=== PATIENT | male | born 1980 | race Caucasian/White ===

== ENCOUNTER 2022-10-29 10:37 | Observation (INO) | payer OTHER ==
[~2022-10-29] VITALS: Ht 170.2 cm; Wt 93.0 kg
--- NOTE | ~2022-10-29 | DS ---
[facility] [address], [place] [address] Draft ADMISSION DATE: 10/29/2022 DISCHARGE DATE: REASON FOR ADMISSION: This 42-year-old white man, who is a prisoner at [facility] and was admitted with significant pancreatitis with lipase level greater than 10,000. He is noted to have multiple gallstones in the gallbladder. He is admitted for further evaluation and care. The patient has had episodic epigastric and right subcostal pain over time. His presentation in the emergency room culminated in an ultrasound, which demonstrated multiple gallstones and lipase level greater than 10,000. He is considered at admission to have gallstone pancreatitis and possible acute calculous cholecystitis. PERTINENT PHYSICAL EXAMINATION: GENERAL: Showed a cooperative white man, who is well developed and did not look to be systemically toxic. VITAL SIGNS: Temperature is 98.1, pulse 65, blood pressure 145/102, respirations 18, and pulse oximetry 98% on room air. HEENT: Mucous membranes were quite markedly dry consistent with dehydration. CHEST: Clear. ABDOMEN: Nondistended. He has tenderness in the epigastric and right subcostal area. There is no palpable mass. He had no ascites. EXTREMITIES: Show no clubbing, cyanosis, or edema. LABORATORY STUDIES: Presentation lab studies showed creatinine of 1.25. Electrolytes normal. Liver enzymes normal, globulin elevated at 4.3 and lipase 10,859. White count was 17.3, hematocrit 46.6, and platelets 345,000. Review of his serology testing showed no evidence of RSV, influenza A or B or coronavirus. IMAGING STUDIES: Showed multiple gallstones within the gallbladder. There is mild gallbladder wall thickening and positive sonographic Vizcarra sign, mild common duct dilatation of 8.8 mm. There is no evidence of liver abnormality. HOSPITAL COURSE: The patient was admitted, given fluid resuscitation and systemic IV antibiotics. His lipase with 24 hours of non-operative intervention was decreased to greater than 3400 and he did have improvement. He still had abdominal pain and tenderness. He had progressive improvement and yet still had some right subcostal tenderness and white PATIENT NAME: MIC CRUMP DISCHARGE SUMMARY DATE OF : [birth year] REPORT #: [id number] PHYSICIAN: BLAINE SOUSA MD PCP: OTHER PCP REPORT IS CONFIDENTIAL AND NOT TO BE RELEASED WITHOUT AUTHORIZATION [facility] [address], [place] [address] Draft count elevated to 14,000. He was considered stable enough for cholecystectomy to prevent further episodes of pancreatitis, as well as to assess for acute cholecystitis. On October 31, 2022, he underwent operation, this initially included laparoscopic cholecystectomy with laparoscopic common duct exploration and laparoscopic extraction of stones from the common bile duct. Flexible choledochoscopy with extraction of the stones percutaneously was accomplished. Conversion to open cholecystectomy prompting open common duct exploration was required as the multiple stones within the common bile duct could not be extracted through a transcystic approach and a formal choledochotomy was required. Given the difficulties of ERCP, papillotomy combined with his incarceration status, made conversion to open operation with operative extraction of stones, the most appropriate approach in his case. This was accomplished without problem. A T-tube cholangiogram performed, which showed no retained stones. He was maintained with an accessory drain near the common bile duct as well as a T-tube to gravity drainage. He had much improvement and progressive improvement of his pancreatitis both clinically and by measurement of lipase level. His T-tube was capped off as the accessory drain was draining no bile. He tolerated this well clinically. The T-tube cholangiogram was performed on November 03, 2022, which showed good flow through the bile duct and no sign of retained stone, but did show leakage at the T-tube and common duct site. The accessory drain at that point was draining a fair amount of bile. The T-tube was attached to gravity drainage once again to diminish the drainage from the accessory drain. It is my opinion that persistent ampullary spasm in edema and so forth of the ampulla is impeding bile flow and that drainage both with T-tube and the accessory drain will be necessary for a while going forward. He is discharged to home tolerating a regular diet, ambulating without problem, with incisional pain well controlled by oral analgesics. The T-tube is now well secured to the abdominal wall with an op-site dressing and operative suture, it is draining by gravity to the T-tube collection bag. Accessory drain has bile within it, but far less in output. Going forward, he will avoid lifting more than 20 pounds for the next 4 weeks. [facility], and we will further manage his T-tube and drain. I suspect in due course the drainage from the accessory [place] drain will become serous once again and without sign of bile leak. A trial of capping of the T-tube at the appropriate time will be undertaken leaving the accessory drain in place and so long as there is no recurrent bile drainage, consideration will be made for removal of the T-tube. I would not remove the T-tube in any case before four weeks postoperatively. PATIENT NAME: MIC CRUMP DISCHARGE SUMMARY DATE OF : [birth year] REPORT #: [id number] PHYSICIAN: BLAINE SOUSA MD PCP: OTHER PCP REPORT IS CONFIDENTIAL AND NOT TO BE RELEASED WITHOUT AUTHORIZATION [facility] [address] [place], [place] [address] Draft DISCHARGE MEDICATIONS: 1. Ibuprofen 600 mg p.o. q.6 h. p.r.n. pain. 2. Oxycodone/Tylenol, 7.5/325 one to two p.o. q.6 h. p.r.n. pain #10, no refill. 3. Tylenol 500 mg two tablets p.o. q.6 h. p.r.n. pain. He will continue his usual medications includin. Mirtazapine (Remeron) 30 mg p.o. at bedtime. 2. Fluoxetine (Prozac) 20 mg tablets two tablets p.o. daily. DISCHARGE DIAGNOSES: 1. Severe acute pancreatitis related to gallstones (gallstone pancreatitis). 2. Status post laparoscopic cholecystectomy with laparoscopic common duct exploration of stones with conversion to open cholecystectomy and extraction of stones, the common duct exploration on October 31, 2022. 3. Placement of T-tube and accessory drain. 4. Status post postoperative T-tube cholangiogram showing mild bile leak, but no impediment to flow in common bile duct ampulla. 5. Sleep disorder. MD AUDELIA Martinez/VALERIEL /[id number] cc: Chema Michele [facility] Copies: ~ PATIENT NAME: MIC CRUMP DISCHARGE SUMMARY DATE OF : [birth year] REPORT #: [id number] PHYSICIAN: BLAINE SOUSA MD PCP: OTHER PCP REPORT IS CONFIDENTIAL AND NOT TO BE RELEASED WITHOUT AUTHORIZATION
[2022-10-29] MEDS ORDERED: REMERON30 MG PO (10:51)
[2022-10-29] MEDS ORDERED: PROZAC20 MG PO (10:51)
--- NOTE | 2022-10-29 13:45 | NUR ---
RECIEVED HAND OFF REPORT FROM TAE QUIROGA.
--- NOTE | 2022-10-29 15:00 | NUR ---
PT ARRIVED TO ROOM 114, VIA STRETCHER, GUARDS X2 AT BEDSIDE. PT ABLE TO STAND AND TRANSFER TO BED INDEPENDENTLY. PT COMPLAINS OF PAIN 7/10, TENDER WITH PALPATION IN THE MIDDLE OF ABD, BOWEL TONES ACTIVE IN ALL QUADRANTS. REPORTS IS NAUSEOUS. PROVIDED ICE CHIPS. ORIENTED TO CALL LIGHT, WITHIN REACH.
--- NOTE | 2022-10-29 17:14 | NUR ---
PT REQUESTED PAIN MEDICATION. THERE ARE ORDERS FOR DILAUDID, BUT MEDICATION IS NOT SHOWING IN THE EMAR. PHARMACY CALLED, AND WILL LOOK AT IT. PT NOTIFIED THAT REGARDING THE SITUATION.
--- NOTE | 2022-10-29 19:06 | NUR ---
PT IS LAYING IN BED, VITALS ANS I/O HAVE BEEN DOCUMENTED. CALL LIGHT IS WITHIN REACH, GAURDS IN ROOM. PT HAS NO OTHER NEEDS AT THIS TIME.
--- NOTE | 2022-10-29 19:25 | NUR ---
PATIENT RESTING BACK IN BED WATCHING TELEVISION, APPEARS CALM. RATES PAIN 5/10 ON PAIN SCALE. TWO GUARDS AT BEDSIDE. BEDSIDE REPORT FROM DAYSHIFT NURSE. CALL LIGHT WITHIN REACH. NO OTHER NEEDS AT THIS TIME.
--- NOTE | 2022-10-29 21:02 | NUR ---
PATIENT REQUESTING ANTACID THAT HE HAD RECIEVED IN THE EMERGENCY ROOM. DR. SOUSA IS ON HIS WAY IN TO SEE THE PATIENT, WILL ADDRESS THEN. FULL BODY ASSESSMENT DONE, NO OTHER NEEDS AT THIS TIME. PATIENT DENIES PAIN AT THIS TIME STATES " I FEEL LIKE I HAVE AIR BUBBLES IN MY STOMACH".
--- NOTE | 2022-10-29 21:42 | NUR ---
DR. SOUSA INTO SEE PATIENT, NEW ORDERS VERIFIED. UPDATED PATIENT ON POC, NO QUESTIONS OR CONCERNS AT THIS TIME.
--- NOTE | 2022-10-29 22:49 | NUR ---
ADMINSTERED PAIN MEDICATION PER MAR, PATIENT NOW RATES PAIN 2/10 ON PAIN SCALE AND STATES " I AM FEELING MUCH MORE COMFORTABLE". LR BOLUS INUFSED. LR INFUSING AT 85 ML/HR. GAURDS AT BEDSIDE. NO OTHER NEEDS AT THIS TIME.
--- NOTE | 2022-10-29 23:39 | NUR ---
PATIENT RESTING, REQUESTING ZOFRAN AT NEXT AVAILABLE TIME. DISCUSSED POC WITH PLAN TO ADMINISTER ZOFRAN AT 0000. NO OTHER REQUESTS AT THIS TIME.
--- NOTE | 2022-10-30 02:00 | NUR ---
PATIENT RESTING SOUNDLY, COLLECTED VS, WNL. PATIENT UP TO BATRHOOM TO, DUE TO VOID. PATTY X2 ASSISTING PATIENT. WILL CALL WHEN DONE.
--- NOTE | 2022-10-30 02:30 | NUR ---
PATIENT ATTEMPTED TO VOID, AMBULATED IN ROOM. BLADDER SCAN [address] SOUSA TO ALERT. NEW ORDER FOR 2L LR BOLUS. INTO ROOM STARTED LR BOLUS AND ADMINISTERED MOM PER HEART BURN COMPLAINTS. PATIENT VERBALIZED WILL CALL WHEN HAS THE URGE TO VOID.
--- NOTE | 2022-10-30 04:15 | NUR ---
BAG 1OF 2 LITER BOLUS DONE, HUNG BAG 2 OF 2. PATIENT UP TO BATHROOM, VOIDED 600 ML OF DARK CONCENTRATED URINE. BACK TO BED, COMPLAINTS OF CRAMPING PAIN IN LOWER ABDOMEN. ADMINISTERED 0.5MG IV DILAUDID PER MAR. PATIENT NOW RESTING WITH LIGHTS DIM. CALL LIGHT WITHIN REACH. PATTY X2 AT BEDSIDE. NO OTHER NEEDS AT THIS TIME.
--- NOTE | 2022-10-30 05:30 | NUR ---
ASSESSMENT DONE. PATIENT VOIDED 600 ML OF CLEAR YELLOW URINE. LR BOLUS X2 COMPLETE. PATIENT UP AMBULATING IN HALLS WITH GAURDS. REPORTS "FEELS LIKE GAS BUBBLES" ACTIVE BOWEL TONES IN ALL QUADRANTS. PATIENT RATES PAIN 5/10 ON PAIN SCALE INTERMITTENT, ADMINISTERED ZOFRAN AND TORADOL PER MAR. NO OTHER NEEDS THIS MORNING.
--- NOTE | 2022-10-30 07:39 | NUR ---
recieved shift report. pt resting in bed, awake. guards at bedside. call light within reach.
--- NOTE | 2022-10-30 08:52 | NUR ---
MED REC COMPLETE
--- NOTE | 2022-10-30 08:57 | NUR ---
MORNING ASSESSMENT COMPLETE. PT RATES PAIN 6/10, TOLERABLE. REPORTS NAUESEA BUT WANTS TO WAIT TILL THE PEPCID TAKES EFFECT. ABD ACTIVE IN LEFT LOWER, UPPER, AND RIGHT UPPER. HYPOACTIVE IN RIGHT LOWER. TENDER WITH PALPATION. DENIES FURTHER NEEDS. CALL LIGHT WITHIN REACH.
--- NOTE | 2022-10-30 12:00 | NUR ---
pt resting in bed, awake. denies further needs. call light within reach. guards at bedside
--- NOTE | 2022-10-30 12:21 | HP ---
[facility] [address], [place] [address] Signed ADMISSION DATE: 10/29/2022 REASON FOR ADMISSION: Gallstone pancreatitis. HISTORY OF PRESENT ILLNESS: This 42-year-old white man is a prisoner at [facility] and has been incarcerated for a year and a half with at least 10 years remaining on his sentence. He has had bouts of epigastric and right subcostal pain on three separate occasions including today. His 1st was on Thanksgiving including similar symptoms that recurred on [place] and now, today New Year's Mar, with similar symptoms. This includes epigastric and right upper abdominal pain with associated nausea, but no actual vomiting thus far. He had no associated diarrhea. His previous episodes have lasted for few days. He presented to the emergency room where he was thoroughly evaluated by Dr. Bazan. This included a gallbladder ultrasound confirming multiple gallstones and lab studies showed an elevated white count of 17.3 with normal liver enzymes including a normal bilirubin of 0.4 with a markedly elevated lipase level of 10,859. He is thus considered to have gallstone pancreatitis and is admitted for further evaluation and care. PAST MEDICAL HISTORY: Notable for appendectomy. He additionally has insomnia and anxiety for which he takes mirtazapine and fluoxetine respectively. He has underlying depression. ALLERGIES: He has no known drug allergies. SOCIAL HISTORY: He is incarcerated at the [facility] as previously noted. He is originally from [place]. He offended in [facility] and is now incarcerated. FAMILY HISTORY: He denies any family history of biliary disease. REVIEW OF SYSTEMS: He denies any shortness of breath or chest pain. Does have a feeling of "bloating" as well as epigastric pain. He does not have back pain associated with this. PHYSICAL EXAMINATION: GENERAL: A well-developed, well-nourished white man who does not look to be systemically toxic. Electronically Signed By: BLAINE SOUSA MD 10/30/22 1221 PATIENT NAME: MIC CRUMP HISTORY AND PHYSICAL DATE OF : [birth year] REPORT #: [id number] PHYSICIAN: BLAINE SOUSA MD PCP: OTHER PCP REPORT IS CONFIDENTIAL AND NOT TO BE RELEASED WITHOUT AUTHORIZATION [facility] [address], [place] [address] Signed VITAL SIGNS: Temperature is 98.1, pulse 65, blood pressure 145/102, respirations 18, pulse oximetry 98%. HEENT: Mucous membranes are markedly dry. Trachea is midline. CHEST: Normal respiratory excursion without tachypnea. ABDOMEN: Scaphoid and nondistended. He does have tenderness in the epigastric and right subcostal area. EXTREMITIES: Show no clubbing, cyanosis, or edema. He does not yet have sequential compression device stockings in place. LABORATORY STUDIES: Showed normal electrolytes with a creatinine of 1.25. Electrolytes normal. Glucose is 145. Liver enzymes are normal. Globulin is elevated at 4.3. Lipase 10,859. CBC shows white count of 17.3, hematocrit 46.6, platelets 345,000. Urinalysis is normal. Serology testing showed negative influenza A, RSV, and influenza B and coronavirus. Imaging studies were reviewed clearly showing multiple stones within the gallbladder. Interpretation by radiologist (Demian Herman MD) confirmed gallstones and mild gallbladder wall thickening and positive sonographic Vizcarra sign and mild common bile duct dilation (8.8 mm). There is no evidence of liver abnormality particularly. ASSESSMENT: The patient appears to have gallstone pancreatitis. I discussed with illustrations the pathophysiology of this problem in the presence of 2 [employer] officers who tend to him. He needs additional fluids at this point, IV antibiotics, Ancef, Pepcid IV and resumption of his Remeron and mirtazapine. He may be able to proceed with operative intervention (cholecystectomy) if his symptoms are markedly improved by tomorrow. Standard therapy would be to allow medical resolution of his symptoms as much as possible proceeding to cholecystectomy prior to discharge so as to avoid further episodes. He certainly does not have to have a normal lipase nor does he have a completely normal exam prior to operation, but improvement and resuscitation of his dehydration would be a minimal prerequisite before proceeding to operative intervention. Operative intervention on occasion does require clearance of the common bile duct. All of these issues were reviewed with him. He understands and agrees with our plan thus far. Will provide additional literature on gallbladder surgery as well. Blaine Sousa MD Electronically Signed By: BLAINE SOUSA MD 10/30/22 1221 PATIENT NAME: MIC CRUMP HISTORY AND PHYSICAL DATE OF : [birth year] REPORT #: [id number] PHYSICIAN: BLAINE SOUSA MD PCP: OTHER PCP REPORT IS CONFIDENTIAL AND NOT TO BE RELEASED WITHOUT AUTHORIZATION [address] [address] Signed AUDELIA/HENNA /[id number] cc: Sari Bazan MD Copies: CRUZ BAZAN MD ~ Electronically Signed By: BLAINE SOUSA MD 10/30/22 1221 PATIENT NAME: MIC CRUMP HISTORY AND PHYSICAL DATE OF : [birth year] REPORT #: [id number] PHYSICIAN: BLAINE SOUSA MD PCP: OTHER PCP REPORT IS CONFIDENTIAL AND NOT TO BE RELEASED WITHOUT AUTHORIZATION
--- NOTE | 2022-10-30 12:41 | NUR ---
pt resting in bed. rates pain 2/10. feels the dilaudid and zofran together has helped. denies further needs at this time.
--- NOTE | 2022-10-30 14:30 | NUR ---
afternoon assessment complete. pt resting in bed. complains of pain 5/10. prn pain medication administered (per emar). pt denies further needs. no new changes since morning assessment. call light within reach.
--- NOTE | 2022-10-30 17:01 | NUR ---
PT WALKING FROM BATHROOM TO BED. GUARDS AT BEDSIDE. PT STATES PAIN IS TOLERABLE AT THIS TIME. SCDS IN PLACE. CALL LIGHT WITHIN REACH.
--- NOTE | 2022-10-30 17:51 | NUR ---
PT RESTING IN BED, COMPLAINED OF PAIN 5/10, AND NAUSEA. PRN MEDICATIONS ADMINISTERED (PER EMAR). GUARDS AT BEDSIDE. CALL LIGHT WITHIN REACH. DENIES FURTHER NEEDS AT THIS TIME.
--- NOTE | 2022-10-30 19:51 | NUR ---
REPORT RECEIVED FROM TAE MAE. pt RESTING IN BED. IVF INFUSING WNL. GUARDS PRESENT IN ROOM.
--- NOTE | 2022-10-30 21:54 | NUR ---
pt ASSESSMENT COMPLETE. RESTING IN BED, RATES PAIN 6/10 IN UPPER ABDOMEN. PRN PAIN MEDICATION ADMINISTERED. pt DENIES NAUSEA. IV SITE FLUSHED WNL. IV ANTIBIOTIC INFUSING WNL. WARM PACK PROVIDED. CALL LIGHT IN REACH. GUARDS IN ROOM.
--- NOTE | 2022-10-31 00:09 | NUR ---
CALL LIGHT ANSWERED. NEW WARM PACK PROVIDED FOR ABDOMEN, pt STATES "IT DID HELP THE CRAMPING". NO ADDITIONAL REQUESTS. GUARDS PRESENT IN ROOM.
--- NOTE | 2022-10-31 01:16 | NUR ---
CALL LIGHT ANSWERED. PRN PAIN AND NAUSEA MEDICATION ADMINISTERED REQUESTED. pt COMPLAINS OF 3/10 PAIN AT REST AND 5/10 PAIN IN UPPER ABDOMEN. WARM PACK APPLIED TO ABDOMEN. CALL LIGHT IN REACH. GUARDS IN ROOM.
--- NOTE | 2022-10-31 02:50 | NUR ---
CALL LIGHT ANSWERED, IV PUMP ALARMING, DISTAL AIR. PUMP BACKPRIMED AND FUNCTIONING WNL, IVF INFUSING ORDERED. pt HAS NO C/O PAIN. SOME TENDERNESS IN ABD WITH PALPATION. ABDOMEN DISTENDED. BOWEL TONES HYPOACTIVE. ASSESSMENT COMPLETE. URINE EMPTIED FROM URINAL. CALL LIGHT IN REACH. GUARDS IN ROOM.
--- NOTE | 2022-10-31 05:05 | NUR ---
CALL LIGHT ANSWERED. PRN PAIN MEDICATION ADMINISTERED FOR 5/10 REPORTED ABDOMINAL PAIN. URINAL EMPTIED. VSS. CALL LIGHT IN REACH. GUARDS IN ROOM.
--- NOTE | 2022-10-31 07:41 | NUR ---
REPORT RECEIVED. PT IN BED WITH TWO GAMARCELODS AT BEDSIDE. FLUIDS INFUSING PER ORDER. PT DENEIS PAIN AT THIS TIME. CALL LIGHT IN REACH.
--- NOTE | 2022-10-31 09:47 | NUR ---
CONSUELO DID HIS SURGICAL WIPE DOWN. SCDS ARE ON. GOWN AND SOCKS ON. CORRECTIONAL OFFICERS IN ROOM.
--- NOTE | 2022-10-31 10:17 | NUR ---
pt reporting pain 5/10. dilaudid admisntered. pre-procedure check list completed. assessment done. ne bag of fluids started.
--- NOTE | 2022-10-31 13:00 | NUR ---
PT REPORTING 5/10 PAIN. [facility] ADM[facility].
--- NOTE | 2022-10-31 13:20 | NUR ---
PATIENT GIVEN 0.5MG OF IV DILAUDID FOR 5/10 ABD PAIN. NO OTHER NEEDS AT THIS TIME.
--- NOTE | 2022-10-31 14:35 | NUR ---
PT UP TO BATHROOM. IN FOR ASSESSMENT AND TO START ABX./ PT REPORTING PAIN 01/06. DENIES FURTHER NEEDS. 2 GAURDS AT BEDSIDE.
--- NOTE | 2022-10-31 15:24 | NUR ---
PT OFF FLOOR TO SURGERY.
--- NOTE | 2022-10-31 19:34 | NUR ---
10/31/221933 Whitney Millard 1915 PT ARRIVED IN PACU NON RESPONSIVE TO NOXIOUS STIMULI WITH OPA IN PLACE. CHIN LIFT HELD BY RN. 1924 PT REACTIVE. OPA IN PLACE. [employer] GUARDS X2 AT BEDSIDE.
--- NOTE | 2022-10-31 20:15 | NUR ---
PT ARRIVES TO FLOOR VIA STRETCHER, REPORT RECEIVED FROM TWILL CUTTER, YOKASTA. PT RESTING IN BED WITH EYES CLOSED. REPORTS SLIGHT NAUSEA AND NEED TO VOID. PT PROVIDED WITH URINAL. PRN TO BE ADMINISTERED. SEE EMAR. PT ALSO REPORTS PAIN, INCREASING FROM 3/10 TO 7/10. PRN ADMINISTERED FOR PAIN, PT STATES RELIEF. ABD WITH LAP SITES X3, ACTICOAT, COLE TO RLQ WITH SANGUINEOUS DRAINAGE AND T TUBE TO LLQ WITH GREEN DRAINAGE. ABD DISTENDED, BT'S HYPOACTIVE, TENDER TO PALPATION. PT REQUESTS ICEWATER. EDUCATION PROVIDED ON SIPS CONSIDERING NAUSEA. PT STATES UNDERSTANDING. DENIES NEEDS AT THIS TIME. GUARDS PRESENT AT BEDSIDE. SHACKLES TO BLE, [employer] SOFT RETRAINTS PRESENT TO BUE. CALL LIGHT IN REACH.
--- NOTE | 2022-10-31 22:20 | NUR ---
CALL LIGHT ANSWERED. CPOX ALARMING, SPD ALERT. SPO2 97% ON RA. VSS. pt HAS NO COMPLAINTS OF PAIN. WATCHING TV. GUARDS IN ROOM.
--- NOTE | 2022-10-31 22:40 | NUR ---
PT ROUNDING. PT RESTING IN BED USING THE URINAL. PT STATES THAT PAIN IS DECREASED. RATES 5/10 TO ABD. DENIES PRN. PT STATES THAT NAUSEA IS WELL CONTROLLED. PT INQUIRING ABOUT DIET. JELLO PROVIDED. PT DENIES FURTHER NEEDS AT THIS TIME. CALL LIGHT IN REACH.
--- NOTE | 2022-10-31 23:30 | NUR ---
SOFTWARE APPLICATIONS ENGINEER TO ROOM FOR POST OP VS. PT RESTING WITH EYES CLOSED. DOES NOT WAKE WHILE SOFTWARE APPLICATIONS ENGINEER AT COMPUTER, WAKES EASILY TO TOUCH AND VOICE. UPON WAKING PT REPORTS PAIN 7/10 TO ABD. PRN ADMINISTERED, SEE EMAR. COLE EMPTIED 30 ML SEROSANGUINEOUS DRAINAGE. SMALL AMOUNT OF LEAKAGE NOTED FROM UNDER ACTICOAT, 2X2 AND SMALL PIECE OF TAPE APPLIED. PT REPORTS SLIGHT NAUSEA, STATES THAT IT IS TOLERABLE. ICE PACK APPLIED TO ABD FOR PAIN. DENIES FURTHER NEEDS. CALL LIGHT IN REACH.
--- NOTE | 2022-11-01 01:15 | NUR ---
PT UTILIZES CALL LIGHT, REQUESTS PRN PAIN MEDICATION. ADMINISTERED. SEE EMAR. PT REPORTS SLIGHT NASUEA. STATES THAT IT IS TOLERABLE AT THIS TIME. PT DENIES FURTHER NEEDS. CALL LIGHT IN REACH.
--- NOTE | 2022-11-01 03:53 | NUR ---
PT ROUNDING. PT RESTING IN BED AWAKE. GUARDS AT BEDSIDE X2. PT ASSESSMENT COMPLETE. PT RATES PAIN 05/08. EDCUATION PROVIDED REGARDING ORAL PAIN MEDCICATION VS IV. PT AGREES TO TRY PO. STATES THAT NAUSEA IS TOLERABLE AT THIS TIME. DENIES SOB. STATES THAT DEEP BREATHING IS PAINFUL TO ABD. EDCUATION PROVIDED ON DEEPBREATHING AND COUGHING. PT STATES UNDERSTANDING. BT'S HYPOACTIVE. ABD TENDER TO PALPATION. MILD DISTENSION NOTED. ACTICOAT DRESSING WITH SMALL AMOUNT OF RED SHADOWING PRESENT. 2X2 TISHA AND TAPE WITH RED SHADOWING PRESENT. COLE TO RLQ WITH SMALL AMOUNT OF SS DRAINAGE. T TUBE TO LUQ WITH SMALL AMOUNT OF GREEN DRAINAGE PRESENT. SHACKLES IN PLACE TO EXTREMITIES X4. CMS INTACT. PT PROVIDED WITH APPLESAUCE AND PUDDING PER REQUEST. ICE PACK TO ABD. PT DENIES FURTHER NEEDS AT THIS TIME. CALL LIGHT IN REACH.
--- NOTE | 2022-11-01 06:16 | NUR ---
PT ROUNDING. PT RESTING IN BED AWAKE, WATCHING TV. PT REPORTS PAIN, 6.7/10 TO ABD. PT ALSO REPORTS SLIGHT NAUSEA, REQUESTS PRN ZOFRAN SO HE CAN "TOLERATE HIS FOOD." PT REMINDED THAT HE HAS BEEN ABLE TO TOLERATE FOOD THROUGHOUT THE NIGHT. PT STATES UNDERSTANDING BUT WOULD STILL LIKE TOHAVE PRN ZOFRAN. ADMINISTERED. PT ICE WATER REFILLED. APPLE SAUCE PROVIDED. PT DENIES FURTHER NEEDS AT THIS TIME. CALL LIGHT IN REACH.
--- NOTE | 2022-11-01 06:29 | NUR ---
PT UP TO WALK IN [place] WITH SBA FROM GUARDS X 2. PT WITH INITIAL PAIN UPON STANDING. DENIES DIZZINESS OR LIGHTHEADEDNESS.
--- NOTE | 2022-11-01 07:00 | NUR ---
BEDSIDE REPORT FROM HARSHAD VAUGHAN RESTING COMFORTABLY WITH GUEST IN ROOM. CALL LIGHT IN REACH AND IV FUSING.
--- NOTE | 2022-11-01 08:31 | NUR ---
ASSESSMENT COMPLETE - PT USES IS WELL, DRAINS EMPTIED T TUBE, COLE, WNL. NOTIFIED KITCHEN OF [employer] PT, AND CHARGE FOR PAPER TRAY - SAFTEY PINS AND SILVERWARE REMOVED FROM ROOM BY THIS RN.
--- NOTE | 2022-11-01 10:42 | NUR ---
pt up amb in valentine with marce cardenas x2, new gown placed by this rn and 2 safety pins to hold drains - ronald aware. iv sl for walk. linen on bed changed by this rn and oral care set up in bathroom for after walk. pt is tollerating amb. well - set up chair for pt to be up after walk.
--- NOTE | 2022-11-01 14:05 | NUR ---
call to danny lopez to dc ancef and leave iv out - change other meds to po. pt up in agrees with plan.
--- NOTE | 2022-11-01 14:18 | NUR ---
CHECKED WITH [facility] ABOUT DC TORADOL - HE WAS GOING TO PHARMACY PROTOCOL CHANGE TO MOTRIN PO AND OR CHECK WITH DR. SOUSA FOR MED IN ADDITION TO PERCOCET.
--- NOTE | 2022-11-01 15:00 | NUR ---
DR ALFORD HERE - DRAINS CHECKED. DISCUSSED LOW FAT DIET, AND PAIN MEDS MOTRIN/PERCOCET. PT UP IN AFTER HIS WALK.
--- NOTE | 2022-11-01 15:22 | NUR ---
CONNECTED WITH PT IN HALLWAY HE AMBULATED WITH EOCI GUARDS. GAVE ENCOURAGEMENT, WILL FOLLOW
--- NOTE | 2022-11-01 16:25 | NUR ---
PT UP IN , 2 PO PERCOCET GIVEN FOR 9/10 ABD PAIN. PT CALL LIGHT IN REACH - 2 EOCI STAFF IN ROOM.
--- NOTE | 2022-11-01 16:27 | OR ---
[facility] [address], [place] [address] Signed DATE OF OPERATION: 10/31/2022 SURGEON: Blaine Sousa MD PREOPERATIVE DIAGNOSIS: Gallstone pancreatitis with multiple gallstones; clinically improving normal liver enzymes, current lipase 1058. POSTOPERATIVE DIAGNOSES: 1. Gallstone pancreatitis. 2. Acute calculous cholecystitis with multiple common bile duct stones. PROCEDURES: 1. Laparoscopic cholecystectomy with laparoscopic common duct exploration and laparoscopic extraction of stones from common bile duct. 2. Flexible choledochoscopy with extraction of stones (percutaneous). 3. Conversion to open cholecystectomy with open common bile duct exploration with extraction of multiple stones by flexible choledochoscopy. 4. T-tube cholangiogram with surgeon directed fluoroscopy (all of this prolonged, complicated, and difficult). ANESTHESIA: General endotracheal, Gail Meño, MANAGER PERSONNEL SELECTION and local 20 mL of 0.25% Marcaine with epinephrine. INDICATION: This 42-year-old white man is a prisoner at [facility] and presented on October 29, 2022 with upper abdominal pain and findings on gallbladder ultrasound showing multiple gallstones within the gallbladder. He was noted to have a lipase level greater than 10,000. He was admitted, given intravenous fluids, parenteral antibiotics and so forth. He has had progressive improvement clinically speaking, though still has some pain in the upper abdomen with mild tenderness. His lipase has decreased to 1058. He is clinically improved enough that cholecystectomy is recommended, so as to avoid recurrent pancreatitis problems. It is uncertain if he has concurrent acute cholecystitis as he does still have some residual pain. Notably, his white count was elevated at the time of admission and has increased to 14,000 again today. He is admitted at this time to undergo a laparoscopic cholecystectomy, possible open procedure, possible common duct exploration, either laparoscopic or open and other Electronically Signed By: BLAINE SOUSA MD 11/01/22 1627 PATIENT NAME: MIC CRUMP OPERATIVE REPORT DATE OF : 82 REPORT #: [id number] PHYSICIAN: BLAINE SOUSA MD PCP: OTHER PCP REPORT IS CONFIDENTIAL AND NOT TO BE RELEASED WITHOUT AUTHORIZATION [facility] [address], [place] [address] Signed indicated procedures. Understanding the risks of bleeding, infection, bile duct injury, need for open procedure and other unforeseen complications, he wished to proceed. FINDINGS: The gallbladder was quite markedly inflamed independently of pancreatitis. There was no evidence of pancreatic saponification. Meticulous care was made to provide for laparoscopic cholecystectomy. Initial cholangiogram showed multiple gallstones within the biliary tree. Despite the markedly inflamed gallbladder and cystic duct a percutaneous transcystic duct exploration of the common duct was undertaken with flexible ureteroscope. This allowed for extraction of several gallstones and there are other multiple gallstones still remaining. The stones appeared to be too large to extract through the cystic duct itself. Quite notably contrast egressed into the duodenum on cholangiogram, however, passage of the flexible wire through the ampulla into the duodenum was never forthcoming and on one occasion, the wire passed retrograde in the pancreatic duct, which was mildly dilated as well. This is a testimony to the inflammatory nature of his pancreatitis and ampullary narrowing. He ultimately required conversion to open operation, which allowed for complete clearance of the common bile duct. A T-tube was placed and a completion T-tube cholangiogram showed contrast flow into the biliary tree without much ( if any) duodenal contrast likely related to ampullary inflammatory change. The liver itself was normal. The gallbladder had multiple yellow mulberry stones packed within the gallbladder itself and the number of stones within the common bile duct; in aggregate there were at least 20 common duct stones, all of which were removed. DESCRIPTION OF PROCEDURE: The patient was brought to the operating room, given a general endotracheal anesthetic. Preoperative antibiotic Ancef had been given. Sequential compression device stockings were used and heparin subcutaneously administered. The abdomen was clipped and prepared with chlorhexidine solution and draped sterilely. An infraumbilical incision was made and using an open Manuel cannula technique, pneumoperitoneum was achieved to a level of 14 mmHg of carbon dioxide gas. Intra-abdominal inspection showed no sign of ascites or carcinomatosis. The gallbladder did appear quite markedly acutely inflamed. It was somewhat contracted and definitely very thickened. Three additional trocars were placed in usual configuration in the subxiphoid, right midclavicular, and right anterior axillary line. The gallbladder was too tensely distended to allow for grasping and a laparoscopic needle decompression device was used to aspirate bile from the gallbladder. It did still have a bilious appearance. The puncture site was grasped and the gallbladder elevated cephalad. There were edematous changes in the infundibulum, and no attachment to the omentum or duodenum proper. With meticulous care, an additional trocar was placed allowing for a fan retractor to expose the infundibulum more fully. Electronically Signed By: BLAINE SOUSA MD 11/01/22 1627 PATIENT NAME: MIC CRUMP OPERATIVE REPORT DATE OF : 82 REPORT #: [id number] PHYSICIAN: BLAINE SOUSA MD PCP: OTHER PCP REPORT IS CONFIDENTIAL AND NOT TO BE RELEASED WITHOUT AUTHORIZATION [facility] [address], [place] [address] Signed The ampulla was grasped and elevated and using blunt electrocautery dissection, the triangle of Calot was dissected free. Cystic duct appeared rather thickened and actually rather dilated as well. Ultimately, the window between the cystic duct and the gallbladder proper could be identified. Clips had been applied to some small cystic arterial branches nearby. A clip was applied across the gallbladder cystic duct junction and transverse choledochotomy made in the cystic duct. Egress of some biliary stone material was noted as well as some mucoid material. Using an Randle type cholangiocatheter, intraoperative cholangiography was undertaken showing free flow of contrast in the biliary tree. There were multiple filling defects within the common bile duct and common hepatic duct. Egress of bile into the duodenum was noted, though it was not profound. A pancreatogram was additionally noted. Plans were made for laparoscopic common duct exploration if possible. Using a flexible ureteral wire through an additional epigastric trocar site, a flexible wire was passed down the cystic duct into the common bile duct. Fluoroscopy was then used to evaluate the common duct, the wire itself appeared to pass to the ampulla, but would not pass beyond it. With various manipulations to pass beyond the ampulla, the wire would then pass in a retrograde direction into the pancreatic duct itself. Multiple attempts were made to pass beyond the ampulla, but they were unsuccessful. Mindful of our usual plan for ampullary dilation, but impossible at this time, a transcystic duct exploration was deemed still possible. A flexible ureteroscope was obtained and a wire withdrawn and the scope passed down the cystic duct without too much problem actually. Advancing of the scope into the common bile duct showed multiple yellow gallstones. The distal portion did not show an impacted single stone by any means, but did not show an outlet particularly. Using a flexible wire basket multiple attempts were made to grasp the stones which was generally successful. Ultimately, a larger stone was grasped and withdrawal undertaken under direct visualization, but this would not pass the cystic duct. This, despite the cystic duct easily large enough to accommodate the ureteroscope. Rather than hazard disruption of the common bile duct with forceful withdrawal of stone contiguous with the nephroscope, plans were made to abandon a laparoscopic approach. Consideration was made for an ERCP based approach for clearance of the duct, however, given current logistical issues related to current flu pandemic, and inability to transfer most patients and particularly regional deficiency of ERCP capability, an open approach was deemed most logistically appropriate for this particular patient . The trocars were removed under direct visualization showing no sign of bleeding, the Electronically Signed By: BLAINE SOUSA MD 11/01/22 1627 PATIENT NAME: MIC CRUMP OPERATIVE REPORT DATE OF : [birth year] REPORT #: [id number] PHYSICIAN: BLAINE SOUSA MD PCP: OTHER PCP REPORT IS CONFIDENTIAL AND NOT TO BE RELEASED WITHOUT AUTHORIZATION [address] [address] Signed infraumbilical fascial incision was reapproximated with interrupted 0 Vicryl suture. Plans were then made for open common duct exploration and cholecystectomy. Right subcostal incision was made including the trocar sites previously used. Dissection was carried through the subcutaneous tissue with electrocautery. The right anterior rectus sheath was incised with electrocautery, the rectus muscle was divided using electrocautery as was a posterior rectus sheath. Notably, muscle layers were quite thick and robust. The Bookwalter retractor with ring attachments was used to provide exposure. Examination showed some bile spillage as had been expected from the previous dissection. A ring clamp was applied to the apex of the gallbladder, gallbladder was dissected free from the subhepatic space with electrocautery excising completely. Multiple stones were packed into the gallbladder. Ultimately, the cystic duct was encountered. A tonsil clamp was applied to the cystic duct and the gallbladder remnant excised and passed for pathology, photographs were taken. Attempts to still provide for transcystic duct approach to the common duct clearance given his underlying resolving pancreatitis was undertaken. A tonsil clamp and ultimately Bennie stone forceps were passed down the cystic duct, delivering some bits of material. A Simona balloon catheter was additionally passed down the duct and passed relatively far and balloon inflated and withdrawn, but still no delivery of actual eduardo stones. Quite obviously there were residual stones. The attempt at passage of a conventional biliary choledochoscope down the cystic duct remnant was unsuccessful despite dilating the cystic duct and on that basis, cystic duct was doubly clipped with medium sized clips. The peritoneum over the common bile duct was meticulously freed from its peritoneal covering, stay sutures of 4-0 PDS applied along the axial surface. An anterior choledochotomy was made in the common bile duct with an 11 blade, egress of clear bile was noted and multiple small stones and larger stones were noted in the residual common duct. These were plucked from the common duct with forceps, at least 10 such stones were extracted. Biliary catheter was passed after irrigation undertaken again and several more stones were removed. The flexible choledochoscope was passed into the choledochotomy, proximal evaluation showed no stones in the proximal biliary tree. The scope was passed distally and by this point all the stones had been cleared. The distal duct was inflammed but without neoplastic change. Electronically Signed By: BLAINE SOUSA MD 11/01/22 9257 PATIENT NAME: MIC CRUMP OPERATIVE REPORT DATE OF : 82 REPORT #: [id number] PHYSICIAN: BLAINE SOUSA MD PCP: OTHER PCP REPORT IS CONFIDENTIAL AND NOT TO BE RELEASED WITHOUT AUTHORIZATION [facility] [address], [place] [address] Signed A 14-Romanian T-tube was cut to the appropriate configuration and placed in the choledochotomy. Choledochotomy secured with running 4-0 PDS suture. Irrigation showed no sign of leak. Plans were then made for T-tube cholangiogram. Under direct fluoroscopic control, T-tube cholangiogram was performed showing contrast flow into the biliary tree with no stone filling defects. There were some areas that might be suggestive of stones, but mindful of the direct visualization, these were considered not stones at all and no further intervention was deemed appropriate. Notably, retrograde filling to the pancreatic duct was again noted and some spillage into the duodenum and contrast also noted. Through one of the right-sided trocar sites from the laparoscopic portion of the case, a 7 mm flat Orlando drain was placed into the subhepatic space. Fibrin glue (Tisseel) with aerosolization was applied to the choledochotomy site as well as the subhepatic space. There was no sign of bile leak, bleeding, or other problems. The T-tube was passed through the abdominal wall through a trocar site, mindful to maintain a good redundancy of the tube itself. Plans were then made for closure. Irrigation was undertaken, posterior rectus sheath reapproximated with running bidirectional #1 PDS suture, and the muscular layer was irrigated, the anterior rectus sheath similarly reapproximated, the subcutaneous tissue was irrigated, and the skin was closed with running subcuticular 3-0 Vicryl, the trocar sites were additionally closed with interrupted 3-0 Vicryl. Not mentioned previously was administration of 20 mL of 0.25% Marcaine with epinephrine to the trocar sites and the incision proper. Steri-Strips were applied to all incision sites. The T-tube was secured to the abdominal wall with an OpSite to avoid early postoperative dislodgement as was the Orlando drain. Acticoat dressing was applied to the subcostal incision. The patient had been under anesthesia for quite some time and on that basis, I performed a straight catheter draining 600 mL of clear yellow urine at the conclusion of the procedure. The catheter was removed. The patient was ultimately extubated and transferred to the recovery room in good condition, having suffered no complications. Sponge, needle, and instrument counts were reported as correct x3. The operation was rather prolonged, complicated, and difficult, taken at least 5 times longer than usual, but was accomplished safely and with good result. Electronically Signed By: BLAINE SOUSA MD 11/01/22 1627 PATIENT NAME: MIC CRUMP OPERATIVE REPORT DATE OF : 82 REPORT #: [id number] PHYSICIAN: BLAINE SOUSA MD PCP: OTHER PCP REPORT IS CONFIDENTIAL AND NOT TO BE RELEASED WITHOUT AUTHORIZATION [facility] [address] [place] [address] Signed Blaine Sousa MD JM/MODL /[id number] cc: MD Chema Sidhu FNP Copies: CRUZ BAZAN MD, MICHELE R FNP ~ Electronically Signed By: BLAINE SOUSA MD 11/01/22 1627 PATIENT NAME: ALISIAMIC OPERATIVE REPORT DATE OF : 82 REPORT #: [id number] PHYSICIAN: BLAINE SOUSA MD PCP: OTHER PCP REPORT IS CONFIDENTIAL AND NOT TO BE RELEASED WITHOUT AUTHORIZATION
--- NOTE | 2022-11-01 17:08 | NUR ---
PT C/O NAUSEA RELATED TO PERFUME FROM THE EOCI GAURD. FAN PROVIDED FOR VENTALATION AND ZOFRAN PO. HE ALSO REQUESTED MOM FOR ACID REFLUX. DINNER TRAY AT BEDSIDE AND HE WILL TRY, GOING SLOW. DENIES OTHER NEEDS,
--- NOTE | 2022-11-01 18:00 | NUR ---
pt reports feeling better after nausea meds, resting in bed, call light in reach - drains wnl.
--- NOTE | 2022-11-01 19:00 | NUR ---
BEDSIDE HANDOFF REPORT RECEIVED FROM DAY SHIFT RN. PT RESTING IN BED. EOCI GUARDS AT BEDSIDE. PT DENIES NEEDS AT THIS TIME.
--- NOTE | 2022-11-01 22:47 | NUR ---
CALL LIGHT ANSWERED. pt C/O 03/08 PAIN AT INCISION SITES "WHERE THE TUBES COME OUT". PRN PAIN MEDICATION ADMINISTERED. CRACKERS PROVIDED, ENCOURAGED TO EAT WITH PO MEDICATIONS. NO ADDITIONAL REQUESTS. GUARDS PRESENT IN ROOM.
--- NOTE | 2022-11-02 03:53 | NUR ---
PT COMPLAINT OF INDIGESTION/BLOATING, GIVEN MALOOX AND ENCOURAGED TO WALK IN [place]. BOWEL TONES ACTIVE, DENIES NAUSEA. PT COMPLAINT OF ABD PAIN 4/10, REQUESTING PAIN MEDICATION, GIVEN 600 MG PO MOTRIN. PROVIDED WITH FRESH WATER. PT DENIES OTHER NEEDS AT THIS TIME, STATES HE WILL WALK IN HALLS IN 15 MINUTES.
--- NOTE | 2022-11-02 04:41 | NUR ---
PT WALKED [address] [address] NOW RESTING IN BED. T TUBE EMPTIED FOR 100ML OF BILE, COLE DRAIN EMPTIED FRO 5ML OF SEROSANGUINOUS DRAINAGE. PT GIVEN 2 TAB PERCOCET FOR PAIN 03/08, FRESH ICE PACKS PROVIDED. PT DENIES OTHER NEEDS AT THIS TIME.
--- NOTE | 2022-11-02 07:25 | NUR ---
REPORT FROM BERTIN RN, PT RESTING WITH 2 EOCI GAURDS AND EOCI RESTRAINTS ON. CALL LIGHT IN REACH.
--- NOTE | 2022-11-02 08:01 | NUR ---
EMPTIED COLE 3 ML AND T TUBE 100 ML, SITES WNL, COLOR AND CONSISITANCY WNL. PT EATING MEAL.
--- NOTE | 2022-11-02 08:30 | NUR ---
PATIENT LAYING IN BED, GUARDS AT BEDSIDE.
--- NOTE | 2022-11-02 09:07 | NUR ---
PT CALL LIGHT ANSWERED. PT REQ ICE PACK AND ICE WATER. BOTH PROVIDED TO PT. UPON GIVING PT ICE WATER. LID FELL OFF AND SPILTOVER PT SHEETS. PT UP TO CHAIR. LINEN CHANGED. PT BACK TO BED. SCDS PUT ON. VITALS AND IS AND OS COMPLETE. PT DECLINED NEEDING TO USE RESTROOM. NO FURTHER NEEDS. CALL LIGHT WITHIN REACH.
--- NOTE | 2022-11-02 10:04 | NUR ---
PT ASSISTED TO GET OUT OF BED AND AMB IN [place] WITH 2 [facility]I STAFF. PT TOLL WELL - 2 PO PERCOCET GIVEN FOR PAIN IN ABD SURGICAL SITES.
--- NOTE | 2022-11-02 12:12 | NUR ---
PT ATE 100% MEAL - 600 ML VOID, PO MOTRIN GIVEN FOR PAIN 02/06. DRAIN AND COLE WNL.
--- NOTE | 2022-11-02 13:40 | NUR ---
CONNECTED WITH PT HE WAS AMBULATING IN HALLWAY WITH 2 DOCI GUARDS. PT SEEMS SLOWER, MORE FOCUSED IN HIS STEPS. GAVE ENCOURAGEMENT, WILL FOLLOW
--- NOTE | 2022-11-02 16:20 | NUR ---
PT AMB IN [place], T TUBE IS CLAMPPED AND DOING WELL, PT GIVEN PO MEDS, WITH WATER - DENIES OTHER NEEDS COLE WNL.
--- NOTE | 2022-11-02 17:45 | NUR ---
pt in bed. guards in room. vitals and is and os complete. pt provided ice water and ice pack. pt urinal emptied. no further needs. call light within reach
--- NOTE | 2022-11-02 18:08 | NUR ---
ATE A FEW BITES OF DINNER - PO PAIN MEDS GIVEN,
--- NOTE | 2022-11-02 19:46 | NUR ---
received report from offgoing shift - hourly rounding initiated
--- NOTE | 2022-11-02 21:35 | NUR ---
IN PT ROOM FOR ROUNDING, MEDICATION ADMINISTRATION, ASSESSMENT. PT RESTING ON BACK, BREATHING EVEN AND UNLABORED, NO INDICATION OF PAIN OR DISCOMFORT. PT ACCOMPANIED BY 2 OFFICERS, CALL LIGHT IN REACH
--- NOTE | 2022-11-02 23:30 | NUR ---
IN PT ROOM FOR ROUNDING. PT RESTING ON BACK, OFFICERS AT BEDSIDE, NO COMPLAINT OF PAIN OR DISCOMFORT, CALL LIGHT IN REACH
--- NOTE | 2022-11-03 01:01 | NUR ---
IN PT ROOM FOR ROUNDING, OFFICERS AT BEDSIDE, BREATHING EVEN AND UNLABORED, NO INDICATIONS OF PAIN, CALL LIGHT IN REACH
--- NOTE | 2022-11-03 02:59 | NUR ---
IN PT ROOM FOR ROUNDING. PT RESTING WITH BREATHING EVEN AND UNLABORED, NO INDICATION OF PAIN OR DISCOMFORT, CALL LIGHT IN REACH.
--- NOTE | 2022-11-03 03:45 | NUR ---
CALL LIGHT ANSWERED, PT MEDICATED WITH PRN MOTRIN FOR 6/10 ABDOMINAL PAIN. DENIES FURTHER REQUESTS.
--- NOTE | 2022-11-03 06:26 | NUR ---
IN PT ROOM FOR MEDICATION ADMINISTRATION, CALL LIGHT IN REACH, OFFICERS AT BEDSIDE, NO COMPLAINT OF PAIN OR DISCOMFORT.
--- NOTE | 2022-11-03 07:40 | NUR ---
RECIEVED SHIFT REPORT. PT LAYING IN BED, AWAKE. GAURDS AT BEDSIDE. DENIES FURTHER NEEDS. CALL LIGHT WITHIN REACH.
--- NOTE | 2022-11-03 09:50 | NUR ---
MORNING ASSESSMENT COMPLETE. LAP SITES X3, STERI STRIPS INTACT, OLD DRAINAGE NOTED TO DRESSINGS. COLE INSERTION SITE, SMALL AMOUNT OF SEROSANG DRAINAGE NOTED. DRESSING CHANGED. COLE DRAINING YELLOW/GREEN FLUID. PAIN RATED 6/10, PRN PAIN MEDICATION ADMINISTERED (PER EMAR). DENIES FURTHER NEEDS. CALL LIGHT WITHIN REACH. GUARDS AT BEDSIDE.
--- NOTE | 2022-11-03 11:08 | NUR ---
PT WALKED HALLS. PAIN 9/10, PRN PAIN MEDICATION ADMINISTERED (PER EMAR). ICE PACK IN PLACE. DENIES FURTHER NEEDS. CALL LIGHT WITHIN REACH.
--- NOTE | 2022-11-03 12:16 | PATH ---
[facility] [address], [place] [address] Signed SPECIMEN(S): A GALLBLADDER AND CALCULI SPECIMEN(S): B COMMON DUCT STONES SPECIMEN SOURCE: A. GALLBLADDER AND CALCULI B. COMMON DUCT STONES CLINICAL HISTORY: Gallbladder pancreatitis, cholecystitis. FINAL PATHOLOGIC DIAGNOSIS: A. Gallbladder and calculi: - Acute and chronic calculous cholecystitis. B. Common duct stones, gross only: - Multiple yellow-gabriel calculi. JVR:[facility]:C2NR MICROSCOPIC EXAMINATION: Histologic sections of all submitted blocks are examined by light microscopy. These findings, together with the gross examination, support the pathologic diagnosis. GROSS DESCRIPTION: A. The specimen, labeled and designated "Yudi, gallbladder and calculi," is received in formalin and consists of Specimen: Previously opened gallbladder. Dimensions: 7.5 x 3.5 x 2.1 cm. Serosa: Gabriel-pink and smooth. Cystic Duct: Unobstructed, margin inked black and shaved. Calculi: Numerous yellow, multifaceted calculi (5.5 x 5.5 x 0.5 cm in aggregate and measuring 0.3 to 0.6 cm in greatest dimension). Mucosa: Gabriel and velvety. Wall thickness: 0.5 cm. Lymph node: No pericystic lymph nodes are grossly identified. Additional: None. Inspector Shells sections are submitted in (A1). B. The specimen, labeled and designated "Yudi, common duct stones," is received in formalin and consists of multiple yellow-gabriel, multifaceted calculi (0.3 to 0.5 cm in greatest dimension and 2.0 x 1.2 x 0.5 cm in aggregate). The specimen is for gross examination only. AC (under the direct supervision of a pathologist) PATIENT NAME: MIC CRUMP PATHOLOGY DATE OF : 82 REPORT #: [id number] PHYSICIAN: VANITA ARELLANO PCP: OTHER PCP REPORT IS CONFIDENTIAL AND NOT TO BE RELEASED WITHOUT AUTHORIZATION [facility] [address], [place] [address] Signed The Gross Description was prepared using a voice recognition system. The report was reviewed for accuracy; however, sound-alike word errors, addition and/or deletions may occur. If there is any question about this report, please contact Client Services. PERFORMING LABORATORY: The technical component was performed by [facility] [address] [place] [id number] (CLIA# [id number]). Professional interpretation was performed by [facility] - [facility], [address] [place] [id number] (CLIA#: [id number]). Diagnostician: Albaro Miranda MD Pathologist Electronically Signed 11/03/2022 Copies: ~ PATIENT NAME: MIC CRUMP PATHOLOGY DATE OF : [birth year] REPORT #: [id number] PHYSICIAN: VANITA ARELLANO PCP: OTHER PCP REPORT IS CONFIDENTIAL AND NOT TO BE RELEASED WITHOUT AUTHORIZATION
--- NOTE | 2022-11-03 13:00 | NUR ---
PT AMBULATING IN HALLWAY WITH 2 EOCI GUARDS. PT SEEMS TO BE WALKING SLOWER HOLDING HIS R SIDE.MORE DIFFICULT FOR PT TO MOVE THROUGH [place]. GAVE SUPPORT AND ENCOURAGEMENT. WILL FOLLOW
--- NOTE | 2022-11-03 14:43 | NUR ---
PT RESTING IN BED, AWAKE. CALL LIGHT WITHIN REACH. DENIES FURTHER NEEDS.
--- NOTE | 2022-11-03 15:00 | NUR ---
Spoke with Dr. Yanez, plan for pt dc tomorrow if all goes well.
--- NOTE | 2022-11-03 16:25 | NUR ---
AFTERNOON ASSESSMENT COMPLETE. PT RESTING IN BED. PT REPORTS INCISION SITE DRAINING. NO NEW CHANGES WITH SURGIAL SITES. DENIES FURTHER NEEDS. GUARDS AT BEDSIDE. CALL LIGHT WITHIN REACH.
--- NOTE | 2022-11-03 16:25 | NUR ---
PT AMBULATED HALLWAY. REQUESTED PRN PAIN MEDICATION (PER EMAR).
--- NOTE | 2022-11-03 16:27 | NUR ---
PATIENT WALKED FIVE LAPS AROUND MED SURG. WITH CORRECTIONAL OFFICERS. GOING TO GET HIM AN ICE PACK.
--- NOTE | 2022-11-03 18:46 | NUR ---
[facility]
--- NOTE | 2022-11-03 19:27 | NUR ---
received report from offgoing shift, hourly rounding initiated
--- NOTE | 2022-11-03 21:00 | NUR ---
IN PT ROOM FOR ROUNDING, PT RESTING ON BACK, BREATHING EVEN AND UNLABORED, NO INDICATION OF PAIN OR DISCOMFORT, THOUGH PT DID ASK FOR PAIN MEDICATIONS. PT CALL LIGHT IN REACH.
--- NOTE | 2022-11-03 22:40 | NUR ---
IN PT ROOM FOR ROUNDING. PT RESTING ON BACK, OFFICERS AT BEDSIDE. PT BREATHING EVEN AND UNLABORED, DRAINAGE AROUND TUBE SITES SOILING GOWN. PT OFFERED NEW GOWN. PT CALL LIGHT IN REACH
--- NOTE | 2022-11-04 00:19 | NUR ---
IN PT ROOM FOR ROUNDING, PT RESTING ON BACK, CALL LIGHT IN REACH, NO INDICATION OF PAIN OR DISCOMFORT, PT HAS OFFICERS AT BEDSIDE
--- NOTE | 2022-11-04 02:30 | NUR ---
IN PT ROOM FOR ROUNDING. PT RESTING ON BACK, CALL LIGHT IN REACH, OFFICERS AT BEDSIDE
--- NOTE | 2022-11-04 04:51 | NUR ---
IN PT ROOM FOR ROUNDING. PT RESTING ON BACK, CALL LIGHT IN REACH, NO COMPLAINT OF PAIN AT THIS TIME. PT BREATHINHG EVEN AND UNLABORED, OFFICERS AT BEDSIDE.
--- NOTE | 2022-11-04 06:22 | NUR ---
IN PT ROOM FOR ROUNDING, PT RESTING ON BACK , OFFICERS AT BEDSIDE. PT HAS NO COMPLAINT OF PAIN AT THIS TIME, CALL LIGHT IN REACH
--- NOTE | 2022-11-04 07:29 | NUR ---
RECIEVED SHIFT REPORT. PT AWAKE, CALL LIGHT WITHIN REACH. GUARDS AT BEDSIDE.
--- NOTE | 2022-11-04 10:00 | NUR ---
IN ROOM WITH TAE KAY TO ASSESS SURGICAL SITES. STERI STRIPS CHANGED, ABD CLEANED AND TEMPORARILY DRESSING APPLIED.
[2022-11-04] MEDS ORDERED: OXYCODON-ACETA1 EAC2 PO (11:23)
[2022-11-04] MEDS ORDERED: IBUPROFEN600 MG PO (11:23)
[2022-11-04] MEDS ORDERED: ACETAMINOPHEN500 MG PO (11:23)
--- NOTE | 2022-11-04 12:40 | NUR ---
Received orders from Rn for pts dc. Copied H&P, Channing sheet, progress notes, labs, and faxed to Juan at [facility]. Called and asked if they can accept this pt back and they will call be after they speak with Management.
--- NOTE | 2022-11-04 13:15 | NUR ---
Return call from [facility]. They would like to have pictures of the pts surgery site and wounds. Consent signed for photo and RN took pictures. Pictures securely emailed to the [facility] at the [facility] home.
--- NOTE | 2022-11-04 13:15 | NUR ---
Called and spoke with Juan and she states they do not have a provider over the weekend and are contacting management to check if they can accept this pt. They will call be back.
--- NOTE | 2022-11-04 13:29 | NUR ---
PT RESTING IN BED, ICE WATER PROVIDED, ICE PACK GIVEN. CALL LIGHT WITHIN REACH. GUARDS AT BEDSIDE.
--- NOTE | 2022-11-04 13:30 | NUR ---
Called and updated Dr. Yanez and attempted to call [facility] without results.
--- NOTE | 2022-11-04 13:55 | NUR ---
In and spoke with senior grants officer. Asked if they have a number for management I can call. Dr. Yanez states this pt does not have any needs and if he was not incarcerated, this pt would go home. CO was able to contact Liv Blanca at the [facility] and update given. She would like orders to show when the pt will have his COLE removed. Dr. Yanez arrives and I asked if she would like to speak with him. He will write his phone number on the orders for any concerns for this pt. They deny further needs. Envelope with chart and orders given to senior grants officer. Rn notified and they will assist the pt to dc.
[2022-11-04] MEDS ORDERED: BACTRIM DS TAB1 EACH PO (22:25)
== END 2022-11-04 14:15 | disposition other institution, planned readmission (95) ==
LOC: ED 10:37 → MS 10:40
PROVIDERS: ADMIT Surgery; ATTEND Surgery
PROC: BF532Z0 Other Imaging of Gallbladder and Bile Ducts using Fluorescing Agent, Intraoperative (ICD-10-PCS; 2022-10-31)
PROC: 0FC90ZZ Extirpation of Matter from Common Bile Duct, Open Approach (ICD-10-PCS; 2022-10-31)
PROC: 0FT40ZZ Resection of Gallbladder, Open Approach (ICD-10-PCS; principal; 2022-10-31 13:00)
PROC: 0FJ44ZZ Inspection of Gallbladder, Percutaneous Endoscopic Approach (ICD-10-PCS; 2022-10-31 13:00)
DX: K85.10 Biliary acute pancreatitis without necrosis or infection (principal); K80.46 Calculus of bile duct with acute and chronic cholecystitis without obstruction; G47.9 Sleep disorder, unspecified; Z20.822 Contact with and (suspected) exposure to COVID-19
CPT/HCPCS: 36415; 47531; 74300; 76705; 80053; 81003; 83690; 85025; 87502; 96372; A9270; C1769; C1894; G0378; J0131; J0690; J1100; J1170; J1644; J1885; J2001; J2405; J2704; J3475; J7030; J7121; Q9967; U0003